=== PATIENT | male | born 1950 | race Native Hawaiian/Other Pacific Islander ===

== ENCOUNTER 2016-06-04 07:51 | Outpatient (CLI) | payer OTHER ==
[~2016-06-04 07:51] MED LIST: BENICAR20 MG PO; CRESTOR5 MG PO; GLIM4TAB PO; INSU100I2 SC; LANTUS100 MG/ML SC
== END 2016-06-04 08:51 | disposition home or self-care (01) ==
LOC: LABW 07:51
PROVIDERS: Internal Medicine
DX: E78.00 Pure hypercholesterolemia, unspecified (principal); Z79.899 Other long term (current) drug therapy; Z51.81 Encounter for therapeutic drug level monitoring
CPT/HCPCS: 36415; 80061; 80076

== ENCOUNTER 2016-10-05 08:43 | Outpatient (CLI) | payer OTHER ==
[2016-10-05 09:26] LABS: POTASSIUM 3.8 mmol/L (3.6-5.2); SODIUM 136 mmol/L (136-145)
== END 2016-10-05 19:09 | disposition home or self-care (01) ==
LOC: LABW 08:43
PROVIDERS: Internal Medicine
DX: E11.9 Type 2 diabetes mellitus without complications (principal)
CPT/HCPCS: 36415; 80053; 80061; 83036

== ENCOUNTER 2017-05-11 08:18 | Outpatient (CLI) | payer OTHER ==
[2017-05-11 09:25] LABS: PLATELET COUNT 216 K/uL (142-355)
[2017-05-11 09:30] LABS: POTASSIUM 4.1 mmol/L (3.6-5.2); SODIUM 133 mmol/L (136-145)
== END 2017-05-11 19:36 | disposition home or self-care (01) ==
LOC: LABW 08:18
PROVIDERS: Internal Medicine
DX: E11.9 Type 2 diabetes mellitus without complications (principal); Z79.899 Other long term (current) drug therapy
CPT/HCPCS: 80053; 80061; 81000; 82043; 82570; 83036; 84439; 84443; 85027

== ENCOUNTER 2017-07-07 15:30 | Outpatient (CLI) | payer OTHER | END 2017-07-07 16:30 | disposition home or self-care (01) | LOC: RAD 15:30 | DX: M79.672 Pain in left foot (principal) ==

== ENCOUNTER 2017-11-22 08:18 | Outpatient (CLI) | payer OTHER ==
[2017-11-22 08:46] LABS: PLATELET COUNT 203 K/uL (142-355)
[2017-11-22 09:11] LABS: POTASSIUM 4.4 mmol/L (3.6-5.2)
== END 2017-11-22 19:23 | disposition home or self-care (01) ==
LOC: LABW 08:18
PROVIDERS: Internal Medicine
DX: E11.9 Type 2 diabetes mellitus without complications (principal)
CPT/HCPCS: 36415; 80053; 80061; 81000; 83036; 84443; 85027

== ENCOUNTER 2018-04-03 11:28 | Outpatient (CLI) | payer OTHER ==
[2018-04-03 11:58] LABS: PLATELET COUNT 219 K/uL (142-355)
[2018-04-03 12:18] LABS: POTASSIUM 4.7 mmol/L (3.6-5.2)
== END 2018-04-03 20:34 | disposition home or self-care (01) ==
LOC: LABW 11:28
PROVIDERS: Internal Medicine
DX: Z00.00 Encounter for general adult medical examination without abnormal findings (principal); E11.9 Type 2 diabetes mellitus without complications; Z12.5 Encounter for screening for malignant neoplasm of prostate
CPT/HCPCS: 36415; 80053; 80061; 81000; 84153; 84439; 84443; 85027

== ENCOUNTER 2018-04-20 08:17 | Outpatient (CLI) | payer OTHER | END 2018-04-20 21:41 | disposition home or self-care (01) | LOC: EDBD 08:17 → US 08:17 | DX: Z13.6 Encounter for screening for cardiovascular disorders (principal); I70.0 Atherosclerosis of aorta ==

== ENCOUNTER 2018-05-18 08:43 | Outpatient (CLI) | payer OTHER | END 2018-05-18 21:34 | disposition home or self-care (01) | LOC: LABW 08:43 | PROVIDERS: Internal Medicine | DX: E11.9 Type 2 diabetes mellitus without complications (principal) | CPT/HCPCS: 36415; 80048; 83036; 84439; 84443 ==

== ENCOUNTER 2018-10-11 08:48 | Outpatient (CLI) | payer OTHER ==
[2018-10-11 09:42] LABS: PLATELET COUNT 229 K/uL (142-355)
[2018-10-11 10:02] LABS: POTASSIUM 4.3 mmol/L (3.6-5.2)
== END 2018-10-11 23:40 | disposition home or self-care (01) ==
LOC: LABW 08:48
PROVIDERS: Internal Medicine
DX: E11.42 Type 2 diabetes mellitus with diabetic polyneuropathy (principal)
CPT/HCPCS: 36415; 80053; 80061; 81000; 82043; 82570; 83036; 84439; 84443; 85027

== ENCOUNTER 2019-04-17 10:44 | Outpatient (CLI) | payer OTHER ==
[2019-04-17 11:09] LABS: PLATELET COUNT 216 K/uL (142-355)
== END 2019-04-17 20:08 | disposition home or self-care (01) ==
LOC: LABW 10:44
PROVIDERS: Internal Medicine
DX: Z00.00 Encounter for general adult medical examination without abnormal findings (principal); E11.9 Type 2 diabetes mellitus without complications; Z12.5 Encounter for screening for malignant neoplasm of prostate; N40.0 Benign prostatic hyperplasia without lower urinary tract symptoms
CPT/HCPCS: 36415; 80053; 80061; 81000; 82043; 82570; 83036; 84153; 84439; 84443; 85027

== ENCOUNTER 2019-06-20 08:55 | Outpatient (CLI) | payer OTHER ==
[2019-06-20 09:35] LABS: POTASSIUM 3.8 mmol/L (3.6-5.2)
== END 2019-06-20 20:53 | disposition home or self-care (01) ==
LOC: LABW 08:55
PROVIDERS: Internal Medicine
DX: E11.9 Type 2 diabetes mellitus without complications (principal); E03.9 Hypothyroidism, unspecified
CPT/HCPCS: 36415; 80053; 82043; 82570; 84439; 84443

== ENCOUNTER 2019-11-14 07:59 | Outpatient (CLI) | payer OTHER ==
[2019-11-14 09:25] LABS: POTASSIUM 4.3 mmol/L (3.6-5.2)
[2019-11-14 09:49] LABS: PLATELET COUNT 198 K/uL (142-355)
== END 2019-11-14 20:22 | disposition home or self-care (01) ==
LOC: LABW 07:59
PROVIDERS: Internal Medicine
DX: E11.49 Type 2 diabetes mellitus with other diabetic neurological complication (principal); Z12.5 Encounter for screening for malignant neoplasm of prostate; N40.0 Benign prostatic hyperplasia without lower urinary tract symptoms
CPT/HCPCS: 36415; 80053; 80061; 81000; 82043; 82570; 83036; 84153; 84439; 84443; 85027

== ENCOUNTER 2020-02-29 02:50 | Emergency (ER) | payer OTHER ==
[~2020-02-29] VITALS: Ht 180.3 cm; Wt 108.9 kg
[2020-02-29 03:13] LABS: PLATELET COUNT 231 K/uL (142-355)
[2020-02-29 03:18] LABS: POTASSIUM 3.1 mmol/L (3.6-5.2); SODIUM 139 mmol/L (136-145)
[2020-02-29 03:29] LABS: PARTIAL THROMBOPLASTIN TIME 21.3 SECONDS (24.5-33.6)
[2020-02-29 04:12] VITALS: BP 144/77; TEMP 97.9
== END 2020-02-29 04:12 | disposition home or self-care (01) ==
LOC: ED 02:50
PROVIDERS: Hospitalist
DX: F45.8 Other somatoform disorders (principal); E87.6 Hypokalemia
CPT/HCPCS: 36415; 36600; 80053; 82550; 82553; 82805; 83880; 84484; 85027; 85379; 85610; 85730; 93005; 99283

== ENCOUNTER 2020-03-14 08:51 | Outpatient (CLI) | payer OTHER ==
[2020-03-14 09:59] LABS: POTASSIUM 3.9 mmol/L (3.6-5.2)
== END 2020-03-14 22:16 | disposition home or self-care (01) ==
LOC: LABW 08:51
PROVIDERS: ATTEND Internal Medicine
DX: E87.6 Hypokalemia (principal)
CPT/HCPCS: 36415; 80053; 83735

== ENCOUNTER 2020-06-18 07:56 | Outpatient (CLI) | payer OTHER ==
[2020-06-18 08:32] LABS: PLATELET COUNT 202 K/uL (142-355)
[2020-06-18 09:23] LABS: POTASSIUM 3.7 mmol/L (3.6-5.2)
== END 2020-06-18 20:50 | disposition home or self-care (01) ==
LOC: LABW 07:56
PROVIDERS: ATTEND Internal Medicine
DX: E11.9 Type 2 diabetes mellitus without complications (principal)
CPT/HCPCS: 36415; 80053; 80061; 81000; 82043; 83036; 84439; 84443; 84550; 85027

== ENCOUNTER 2020-08-13 08:32 | Outpatient (CLI) | payer OTHER ==
[2020-08-13 08:54] LABS: PLATELET COUNT 206 K/uL (142-355)
[2020-08-13 09:11] LABS: POTASSIUM 3.6 mmol/L (3.6-5.2)
== END 2020-08-13 21:30 | disposition home or self-care (01) ==
LOC: LABW 08:32
PROVIDERS: ATTEND Internal Medicine
DX: Z00.00 Encounter for general adult medical examination without abnormal findings (principal); E11.42 Type 2 diabetes mellitus with diabetic polyneuropathy; Z12.5 Encounter for screening for malignant neoplasm of prostate; N40.0 Benign prostatic hyperplasia without lower urinary tract symptoms
CPT/HCPCS: 36415; 80053; 80061; 81000; 83036; 84153; 84439; 84443; 85027

== ENCOUNTER 2020-10-22 10:05 | Emergency (ER) | payer OTHER ==
[2020-11-02 09:34] LABS: POTASSIUM 4.5 mmol/L (3.6-5.2)
[2020-11-02 09:35] LABS: PLATELET COUNT 214 K/uL (142-355)
== END 2020-10-22 12:50 | disposition home or self-care (01) ==
LOC: ED 10:05
PROVIDERS: Family Medicine
DX: N20.1 Calculus of ureter (principal)
CPT/HCPCS: 80048; 82150; 83690; 85027; 96374; 96375; 99284

== ENCOUNTER 2021-06-23 08:20 | Outpatient (CLI) | payer OTHER ==
[2021-06-23 08:51] LABS: PLATELET COUNT 214 K/uL (142-355)
[2021-06-23 09:16] LABS: POTASSIUM 4.4 mmol/L (3.6-5.2)
== END 2021-06-23 18:51 | disposition home or self-care (01) ==
LOC: LABW 08:20
PROVIDERS: ATTEND Internal Medicine
DX: E11.9 Type 2 diabetes mellitus without complications (principal)
CPT/HCPCS: 36415; 80053; 80061; 83036; 84439; 84443; 85027

== ENCOUNTER 2021-09-07 16:21 | Outpatient (CLI) | payer OTHER ==
[2021-09-07 17:30] LABS: POTASSIUM 4.2 mmol/L (3.6-5.2)
[2021-09-07 17:40] LABS: PLATELET COUNT 235 K/uL (142-355)
== END 2021-09-07 19:10 | disposition home or self-care (01) ==
LOC: LAB 16:21
PROVIDERS: ATTEND Internal Medicine
DX: Z00.00 Encounter for general adult medical examination without abnormal findings (principal); Z12.5 Encounter for screening for malignant neoplasm of prostate; E11.9 Type 2 diabetes mellitus without complications
CPT/HCPCS: 80053; 80061; 83036; 84153; 84439; 84443; 85027

== ENCOUNTER 2021-10-20 06:48 | Emergency (ER) | payer OTHER ==
[~2021-10-20] VITALS: Ht 180.3 cm; Wt 108.9 kg
[2021-10-20 06:48] VITALS: TEMP 97.8
[2021-10-20 07:27] LABS: PLATELET COUNT 233 K/uL (142-355)
[2021-10-20 07:34] LABS: POTASSIUM 3.8 mmol/L (3.6-5.2)
[2021-10-20 09:25] VITALS: BP 159/80
== END 2021-10-20 09:34 | disposition still patient (30) ==
LOC: ED 06:48
PROVIDERS: Emergency Medicine Emergency Medical Services
DX: R10.84 Generalized abdominal pain (principal); N23 Unspecified renal colic; N13.2 Hydronephrosis with renal and ureteral calculous obstruction; E11.65 Type 2 diabetes mellitus with hyperglycemia; Z79.4 Long term (current) use of insulin; K59.09 Other constipation
CPT/HCPCS: 80053; 81002; 82150; 83605; 83690; 83735; 84484; 85027; 93005; 96360; 96367; 96374; 96376; 99284; J1885; J2405; Q9963

== ENCOUNTER 2022-06-10 13:56 | Outpatient (CLI) | payer OTHER ==
[2022-06-10 14:22] LABS: PLATELET COUNT 204 K/uL (142-355)
[2022-06-10 14:38] LABS: POTASSIUM 4.1 mmol/L (3.6-5.2)
== END 2022-06-10 20:44 | disposition home or self-care (01) ==
LOC: LAB 13:56
PROVIDERS: ATTEND Internal Medicine
DX: E11.9 Type 2 diabetes mellitus without complications (principal); E03.8 Other specified hypothyroidism; E78.00 Pure hypercholesterolemia, unspecified; I10 Essential (primary) hypertension
CPT/HCPCS: 36415; 80053; 80061; 83036; 84439; 84443; 85027

== ENCOUNTER 2022-11-04 12:56 | Outpatient (CLI) | payer OTHER ==
[2022-11-04 13:44] LABS: PLATELET COUNT 204 K/uL (142-355)
[2022-11-04 14:17] LABS: POTASSIUM 4.3 mmol/L (3.6-5.2)
== END 2022-11-04 22:30 | disposition home or self-care (01) ==
LOC: LAB 12:56
PROVIDERS: ATTEND Internal Medicine
DX: E03.8 Other specified hypothyroidism (principal); E11.9 Type 2 diabetes mellitus without complications; N40.1 Benign prostatic hyperplasia with lower urinary tract symptoms
CPT/HCPCS: 80053; 80061; 81002; 83036; 84153; 84439; 84443; 85027